=== PATIENT | female | born 1995 | race Caucasian/White ===

== ENCOUNTER 2018-09-09 16:41 | Outpatient (CLI) | payer OTHER, SELFPAY ==
--- NOTE | 2018-09-09 17:55 | PM.OBTRLD ---
Visit Information Visit Information Date of evaluation: 09/09/18 On-call OB Provider: Misa Chou Reason for Evaluation: Yes non-stress test non-stress test reason: other (Cramping, lightheaded) Comments/Additional reasons for admission: Patient was at a dental cleaning earlier today on the [employer] base when she felt lightheaded and ill with some abdominal cramping. She requested to come to [facility] for evaluation and was brought to the Center by EMS. Exam Vital Signs (past 8 hours): BP 127/85 HR 76 Evaluation Evaluation Baseline heart rate: 130 Variability: Moderate (11-25) monitor accelerations: Present monitor decelerations: Absent Category of Tracing: I Diagnosis, Plan/Disposition Final Diagnosis (1) 28 weeks gestation of : Current Visit: Yes Status: Acute Plan/Disposition Plan: Patient presented to the center with cramping and dizziness. No contractions on the monitor. NST was reactive. Urine was suggestive of UTI with blood, leukocytes and bacteria. Culture is pending. Recommended treatment with nitrofurantoin and follow up with primary OB provider. Patient felt better after hydration and Tylenol and was discharged home.
[2018-09-09 18:00] VITALS: TEMP 36.6
[2018-09-09] MEDS: ACETAMINOPHEN 325 MG TABLET 650 MG PO (18:00)
[2018-09-09 18:05] LABS: Bilirubin Urine UA NEGATIVE (NEGATIVE); Color Urine UA YELLOW; Glucose Urine UA NEGATIVE (Negative); Ketones Urine UA 1+ (NEGATIVE); Leukocyte Esterase Urine UA TRACE (NEGATIVE); Nitrite Urine UA NEGATIVE (Negative); Occult Blood Urine UA 1+ (Negative); Protein Urine UA TRACE (Negative); Urobilinogen Urine UA 0.2 E.U./dL (0.2)
[2018-09-09 18:07] LABS: Appearance Urine UA Slightly Cloudy
[2018-09-09 18:13] LABS: Amorphous Sediment Urine 1+; Bacteria Urine Many (>30); Culture Indicated Urine Specimen Cultured; Mucus Urine 1+ (Negative); RBC Urine 5-10/HPF (0-5/HPF); Squamous Epithelial Cell Urine 1-5 /HPF (0-5/HPF); WBC Urine 5-10/HPF (0-5/HPF)
== END 2018-09-09 18:40 | disposition home or self-care (01) ==
LOC: LABOR 18:24 → OB 09-14 12:08
PROVIDERS: Visit Provider Family Medicine
DX: O26.893 Other specified pregnancy related conditions, third trimester (principal); R51 Headache; R10.2 Pelvic and perineal pain; M54.5 Low back pain; R20.0 Anesthesia of skin; Z3A.28 28 weeks gestation of pregnancy
CPT/HCPCS: 59025; 59050; 81001; 87086; G0378; G0379